=== PATIENT | female | born 1945 | race Caucasian/White ===

== ENCOUNTER → 2017-06-22 | Outpatient (CLI) | payer MEDICARE, BC ==
[~2017-06-22] MED LIST: ATR80PT PO; LISI20TA29 PO; PER PO
--- NOTE | 2017-06-22 15:32 | RADIOLOGY IMAGING REPORT ---
FACILITY: [facility] PATIENT NAME: Wanda Flynn : 1945 MR: [id number] V: [id number] EXAM DATE: ORDERING PHYSICIAN: HASMUKH GIBSON TECHNOLOGIST: Location: [facility] [place] Patient: Wanda Flynn : 1945 Visit/Account:[id number] Date of Sevice: 06/22/2017 Exam type: SOFT TISSUE NON-SPECIFIC History: Mass in right axilla Comparison: None. Findings: A small hypoechoic nodules identified just beneath the skin in the right axilla measuring 7 x 5 x 8 m m. There is no internal blood flow. A tract extending from this hypoechoic region to the skin was o bserved by the technologist. She also observed small amount of purulent material on the patient's sk in adjacent to this IMPRESSION: 1. There is a 7 x 5 x 8 mm hypoechoic nodule just beneath the skin with a small tract extending to t he skin with some adjacent purulent material likely representing a small infection possibly an infect ed sebaceous cyst Report Dictated By: Zulay Nj MD at 06/22/2017 3:26 PM Report E-Signed By: Zulay Nj MD at 06/22/2017 3:29 PM WSN:[email or web address]
--- NOTE | 2017-06-23 08:26 | RADIOLOGY IMAGING REPORT ---
[place] [facility] [place] NAME: OTTONIEL HALE : [id number] MR: [id number] V: [id number] EXAM DATE: ORDERING PHYSICIAN: HASMUKH GIBSON TECHNOLOGIST: Whitney Young PROCEDURE:BILATERAL DIGITAL SCREENING MAMMOGRAM WITH CAD ASSISTED INTERPRETATION AND 3D BREAST TOMOSYNTHESIS. COMPARISON:Prior mammograms dated 03/10/15, 11/30/12 and 02/04/11. INDICATIONS:SCREENING FINDINGS: A small amount of fibroglandular tissue is seen throughout the breasts. The parenchymal pattern has remained stable when allowing for difference in mammographic technique and patient positioning. There is no evidence of malignant appearing mass, malignant appearing calcification or other secondary sign of malignancy in either breast. DIAGNOSTIC CATEGORY 1--NEGATIVE. RECOMMENDATIONS: ROUTINE MAMMOGRAM AND CLINICAL EVALUATION. IMPRESSION: Bi-RADS 1: No significant abnormality is seen. Images were reviewed with R2CAD and 3D breast tomosynthesis. Dictated by: Zulay Nj M.D. on 06/22/2017 at 16:06 Transcribed by: [email or web address] on 06/22/2017 at 18:23 Approved by: Zulay Nj M.D. on 06/23/2017 at 8:25 [facility]
== END ==
LOC: MAMO 00:51
PROVIDERS: ATTEND Nurse Practitioner Family
DX: Z12.31 Encounter for screening mammogram for malignant neoplasm of breast (principal); N63.31 Unspecified lump in axillary tail of the right breast
CPT/HCPCS: 76999; 77063; 77067